=== PATIENT | female | born 1985 | race Caucasian/White ===

== ENCOUNTER → 2019-03-28 | Outpatient (CLI) | payer BC ==
[~2019-03-28] MED LIST: FLINTSTONES1 CTB PO
== END ==
LOC: COL.RAD 13:53
DX: M25.521 Pain in right elbow (principal)

== ENCOUNTER 2021-01-31 12:33 | Outpatient (CLI) | payer BC ==
--- NOTE | 2021-01-29 10:15 | NUR ---
spoke to nurse regarding need for labs to be run on lp fluids.
[~2021-01-31] VITALS: Ht 167.6 cm; Wt 103.3 kg
[~2021-01-31 12:33] MED LIST changes: +CURCUMIN95% PO; +DESYREL 50MG50 MG PO; +GINGER500 MG PO; +MAGNESIUM CITR100 MG PO; +MAGNESIUM ELEME30 MG PO; +MINIPRESS 1M1 MG/CAP PO; +PROZAC40 MG PO
[2021-01-31 12:56] VITALS: BP 129/90; PULSE 109
[2021-01-31 13:38] VITALS: BP 122/77; PULSE 89
[2021-01-31 13:45] VITALS: BP 122/77; PULSE 80
[2021-01-31 14:00] VITALS: BP 125/89; PULSE 79
[2021-01-31 14:03] LABS: GLUCOSE,CSF 58 mg/dL (40-70); TOTAL PROTEIN,CSF 23 mg/dL (15-45)
[2021-01-31 14:30] VITALS: BP 124/78; PULSE 78
[2021-01-31 15:47] LABS: CSF COLOR COLORLESS
[2021-01-31 15:48] LABS: CSF APPEARANCE CLEAR; CSF MONONUCLEAR 86 % (70-100); CSF POLYMORPHONUCLEAR 16 % (0-6); CSF RBC < 1 /mm3 (0-0)
== END 2021-01-31 14:35 | disposition home or self-care (01) ==
LOC: COL.RAD 12:33
PROVIDERS: Family Medicine
DX: H47.099 Other disorders of optic nerve, not elsewhere classified, unspecified eye (principal)

== ENCOUNTER 2021-02-25 12:49 | Emergency (ER) | payer BC ==
[~2021-02-25] VITALS: Ht 165.1 cm; Wt 103.6 kg
[2021-02-25 13:46] VITALS: TEMP 98.3
[2021-02-25 15:33] LABS: BASO % 0.3 % (0.0-2.0); EOS % 0.5 % (0-4.0); GRAN # 6.6 (1.4-6.5); GRAN % 75.9 % (42.2-75.2); HEMATOCRIT 40.1 % (37.0-47.0); HEMOGLOBIN 13.5 g/dl (12.5-16.0); LYMPH # 1.5 (1.2-3.4); LYMPH % 16.9 % (20.0-51.0); MEAN CELL VOLUME 83 fl (80.0-100.0); MEAN CORPUSCULAR HEMOGLOBIN 28 pg (27.0-31.0); MEAN CORPUSCULAR HGB CONC 34 g/dl (33.0-37.0); MEAN PLATELET VOLUME 10.8 fl (7.4-10.4); MONO # 0.5 (0.1-0.6); MONO % 5.9 % (1.7-9.3); PLATELET COUNT 272 K/mm3 (130-400); RED BLOOD COUNT 4.81 M/mm3 (4.10-5.30); REDCELL DISTRIBUTION WIDTH-CV 14.1 % (11.5-14.5)
[2021-02-25 15:41] LABS: ALANINE AMINOTRANSFERASE 31 U/L (4-34); ALBUMIN 4.4 gm/dL (3.5-5.0); ALKALINE PHOSPHATASE 84 U/L (50-136); ANION GAP 11 mmol/L (7-16); AST,SGOT 24 U/L (15-37); BILIRUBIN,TOTAL 0.4 mg/dL (0.0-1.0); BLOOD UREA NITROGEN 12 mg/dL (7-17); CALCIUM 9.3 mg/dL (8.4-10.2); CARBON DIOXIDE 20 mmol/L (22-30); CHLORIDE 109 mmol/L (98-107); CREATINE KINASE 36 U/L (30-135); CREATININE, serum 0.82 (0.52-1.25); GLUCOSE 117 mg/dL (74-106); POTASSIUM 3.6 mmol/L (3.4-5.0); SODIUM 141 mmol/L (137-145)
[2021-02-25 15:42] LABS: COLLECTION METHOD CLEAN CATCH
[2021-02-25 16:04] LABS: TROPONIN-I < 0.012 ng/mL (0.000-0.035)
[2021-02-25 16:45] LABS: AMORPHOUS CRYSTAL Present /uL; MUCOUS Present /lpf; PH 6 (5-8); SQUAMOUS EPITHELIAL 0-2 /hpf; URINE APPEARANCE Cloudy; URINE BACTERIA Rare /hpf; URINE BILIRUBIN Negative (NEGATIVE); URINE BLOOD Negative (NEGATIVE); URINE COLOR Yellow; URINE GLUCOSE Negative (NEGATIVE); URINE KETONE Negative (NEGATIVE); URINE LEUKOCYTE ESTERASE Negative (NEGATIVE); URINE NITRATE Negative (NEGATIVE); URINE PROTEIN(semi-quant) Negative (NEGATIVE); URINE UROBILINOGEN Negative (NEGATIVE)
[2021-02-25 17:27] VITALS: BP 127/87; PULSE 93
== END 2021-02-25 17:25 | disposition home or self-care (01) ==
LOC: COL.ER 12:49
PROVIDERS: Nurse Practitioner
DX: R06.02 Shortness of breath (principal); R00.2 Palpitations; T50.2X5A Adverse effect of carbonic-anhydrase inhibitors, benzothiadiazides and other diuretics, initial encounter; G93.2 Benign intracranial hypertension
CPT/HCPCS: J7030